=== PATIENT | female | born 1975 | race Caucasian/White ===

== ENCOUNTER → 2016-11-07 | Outpatient (CLI) | payer MEDICARE, OTHER | LOC: HEART 5 13:51 | DX: J44.9 Chronic obstructive pulmonary disease, unspecified (principal) | CPT/HCPCS: 94010 ==

== ENCOUNTER → 2021-10-09 | Outpatient (CLI) | payer MEDICARE, OTHER ==
[~2021-10-09] MED LIST: ASPIRIN EC81 MG PO; ATORVASTATIN CA20 MG PO; BACTRIM DS TAB1 EACH PO; BRILINTA 90 MG90 MG PO; CHANTIX1 MG PO; CLEOCIN HCL300 MG PO; HABITROL 21 MG P1 EA TD; IBUPROFEN600 MG PO; KEFLEX CAP 500500 MG PO; LEVEMIR100 UNIT/1 SQ; LOPRESSOR 25 MG25 MG PO; LORTAB 7.5-3251 EACH PO; METROGEL-VAGINA70 GM VG; NOVOLOG100 UNIT/1 SC; PRINIVIL5 MG PO; VIBRAMYCIN100 MG PO
== END ==
LOC: ECHO 10:14
DX: I25.10 Atherosclerotic heart disease of native coronary artery without angina pectoris (principal); R06.00 Dyspnea, unspecified; I08.1 Rheumatic disorders of both mitral and tricuspid valves
CPT/HCPCS: ECHO; 93306

== ENCOUNTER → 2021-10-23 | Outpatient (CLI) | payer MEDICARE, OTHER | LOC: EXRD 09:00 | DX: R10.11 Right upper quadrant pain (principal) | CPT/HCPCS: 76705 ==